=== PATIENT | male | born 1960 | race Caucasian/White ===

== ENCOUNTER → 2020-11-20 | Outpatient (CLI) | payer OTHER, MEDICARE | LOC: RT 14:41 | DX: R00.1 Bradycardia, unspecified (principal) ==

== ENCOUNTER → 2020-11-30 | Outpatient (CLI) | payer MEDICARE, OTHER | LOC: HEART CORB 13:30 | DX: R07.2 Precordial pain (principal); R00.1 Bradycardia, unspecified ==